=== PATIENT | male | born 1975 | race Two or more races ===

== ENCOUNTER 2021-01-31 17:33 | Emergency (ER) | payer OTHER ==
[2021-01-31 17:52] VITALS: BP 153/91; PULSE 90; BMI 31.6
[2021-01-31] MEDS ORDERED: CLINDAMYCIN HCL 150 MG CAPSULE (FP) PO ONE (19:26)
[2021-01-31] MEDS ORDERED: CLINDAMYCIN HCL 150 MG CAPSULE (FP) ONE (19:30)
== END 2021-01-31 20:45 | disposition home or self-care (01) ==
LOC: JER 17:33
DX: L03.113 Cellulitis of right upper limb (principal); S59.901A Unspecified injury of right elbow, initial encounter; W01.0XXA Fall on same level from slipping, tripping and stumbling without subsequent striking against object, initial encounter; Y92.019 Unspecified place in single-family (private) house as the place of occurrence of the external cause
CPT/HCPCS: 73070-TC-RT-FY; 99283-25

== ENCOUNTER 2021-02-02 09:33 | Emergency (ER) | payer OTHER ==
[2021-02-02 09:41] VITALS: BP 144/88; PULSE 84; TEMP 97.8; BMI 31.6
== END 2021-02-02 10:55 | disposition home or self-care (01) ==
LOC: JERFT 09:33
DX: Z48.00 Encounter for change or removal of nonsurgical wound dressing (principal)
CPT/HCPCS: 99281-25

== ENCOUNTER 2021-02-04 11:21 | Emergency (ER) | payer OTHER ==
[2021-02-04 11:44] VITALS: BP 163/93; PULSE 63; TEMP 98.1; BMI 32.5
== END 2021-02-04 12:13 | disposition home or self-care (01) ==
LOC: JER 11:21 → JERFT 11:21
DX: Z48.00 Encounter for change or removal of nonsurgical wound dressing (principal)
CPT/HCPCS: 99281-25